=== PATIENT | female | born 1970 | race Caucasian/White ===

== ENCOUNTER 2016-11-09 18:42 | Emergency (ER) | payer BC, MEDICAID ==
[~2016-11-09] VITALS: Ht 154.9 cm; Wt 98.5 kg
[~2016-11-09 18:42] MED LIST: LEVO100T87 PO
[2016-11-09 18:57] VITALS: Ht 154.9 cm; Wt 98.5 kg
--- NOTE | 2016-11-09 19:29 | ERD ---
ER Documentation Chief Complaint Date/Time DATE: 11/09/16 TIME: 19:24 Chief Complaint bilateral eye redness, itching, watery discharge, and swelling surrounding eyes earlier HPI 46 year old presents here in emergency department for complaints of bilateral eye redness and itching watery discharge, complaining of sharp pains on the right eye started this morning, noted swelling surrounding by both eyes this morning, it has resolved. Patient denies any purulent discharge from the eyes. Patient denies any fever or chills. Patient denies any trauma in the eye. Patient denies any foreign body sensation in the eye. Patient denies any vision changes. ROS All systems reviewed and are negative except as per history of present illness. Medications Home Meds Reported Medications Levothyroxine Sodium* (Levothyroxine Sodium*) 100 Mcg Tablet, 100 MCG PO DAILY 04/28/11 Allergies Allergies: Coded Allergies: No Known Allergy (Unverified , 11/09/16) PMhx/Soc History of Surgery: Yes (GALLBLADDER, APPENDIX) Hx Miscellaneous Medical Probl: Yes (THYROID) Hx Alcohol Use: No Hx Substance Use: No Hx Tobacco Use: No Smoking Status: Unknown if ever smoked FmHx Family History: No coronary disease, No diabetes, No other Physical Exam Vitals Vital Signs Date Time Temp Pulse Resp B/P Pulse Ox O2 Delivery O2 Flow Rate FiO2 11/09/16 18:57 97.7 80 18 113/58 99 Physical Exam GENERAL: The patient is well developed and appropriate for usual state of health, in no apparent distress. HEENT: Atraumatic. Bilateral eyes and noted to be erythematous, mild swelling noted in the upper and lower eyelids, surrounding th earea.Bilateral eyes are PERRL EOM intact.Ears: Normal tympanic membrane, no erythema or bulging. No ear canal swelling. No ear discharge. Nose: normal nasal turbinates, no erythema or swelling. Normal nasal discharge. Throat: oropharynx clear. No tonsillar swelling or tonsillar exudates. No lymphadenopathy. CHEST: Clear to auscultation bilaterally. There are no rales, wheezes or rhonchi. HEART: Regular rate and rhythm. No murmurs, clicks, rubs or gallops. No S3 or S4. ABDOMEN: Soft, nontender and nondistended. Good bowel sounds. No rebound or guarding. No gross peritonitis. No gross organomegaly or masses. No Britt sign or McBurney point tenderness. BACK: No midline or flank tenderness. EXTREMITIES: Equal pulses bilaterally. There is no peripheral clubbing, cyanosis or edema. No focal swelling or erythema. Full range of motion. Grossly neurovascularly intact. NEURO: Alert and oriented. Cranial nerves 2-12 intact. Motor strength in all 4 extremities with 5/5 strength. Sensation grossly intact. Normal speech and gait. SKIN: There is no apparent rash or petechia. The skin is warm and dry. HEMATOLOGIC AND LYMPHATIC: There is no evidence of excessive bruising or lymphedema. No gross cervical, axillary, or inguinal lymphadenopathy. Results 24 hrs Current Medications Medications (Trade) Dose Ordered Sig/Ariadna Route PRN Reason Start Time Stop Time Status Last Admin Dose Admin Fluorescein Sodium (Qpldd-H-Ggdux) 1 strip ONCE ONCE RIGHT EYE 11/09/16 19:30 11/09/16 19:31 DC Tetracaine HCl (Tetracaine 0.5% Steri-Unit Jyoti) 1 drop ONCE ONCE BOTH EYES 11/09/16 19:30 11/09/16 19:31 DC PROCEDURE: CT Brain without contrast. CLINICAL INDICATION: headache TECHNIQUE: A CT of the brain was performed on a multidetector CT scanner utilizing axial imaging from the skull base through the vertex without IV contrast. Multiplanar reformatted images were made. Images were reviewed on a PACS workstation. The CTDIvol is there 42 mGy and the DLP is to 630 mGycm. COMPARISON: Head CT August 20, 2015 FINDINGS: There is no intracranial hemorrhage, mass effect, or midline shift. No extra- axial fluid collection is seen. The ventricles and sulci are normal in size and configuration. The density of the brain is normal, and the mcnamara white matter differentiation appears well-preserved. The visualized osseous structures are grossly unremarkable. There is mucoperiosteal thickening in the sphenoid sinus. IMPRESSION: 1. No evidence of acute intracranial pathology. 2. The brain is normal in appearance. .Estrada Wilkes MD, MD Date Time Electronically viewed and signed by .Estrada Wilkes MD, on 11/09/2016 20: 28 .A/ Procedures/MDM Procedure Note: After obtaining informed consent, the bilateral eye was stained using fluorescein dye. After staining the eye, A Wood's lamp was used to evaluate the eye. There is no foreign body noted in the eye. No corneal abrasions noted. Patient tolerated procedure well. Bilateral eye pressures were also checked, 22 mmHg right eye, 22 mmHg left eye. Visual acuity check, normal for patient. Medical Decision Making: Patient symptoms are consistent with migraine headache , possible tension headache. Patient's bilateral eye redness and itching watery eyes most likely consistent with allergic conjunctivitis. There is low suspicion for neurological emergencies at this time since patients neurologic exam is normal. Patient did not have any altered level consciousness, vomiting, changes in balance or memory and did not have any head injury. Patients CT scan of the head does not show any neurological emergencies at this time. Rx: Fioricet with codeine, Zofran, Naphcon ophthalmic solution, Zyrtec, patient is advised to see an eye doctor for further evaluation, follow-up with primary care doctor in 2-3 days for reevaluation of symptoms. Dispostion: Home. Stable Departure Diagnosis: Primary Impression: Headache Headache type: unspecified Headache chronicity pattern: acute headache Intractability: not intractable Qualified Code: R51 - Acute nonintractable headache, unspecified headache type Additional Impression: Allergic conjunctivitis Laterality: bilateral Qualified Code: H10.13 - Allergic conjunctivitis, bilateral Condition: Stable Patient Instructions: Conjunctivitis, Allergic, Self-Care for Headaches Additional Instructions: Rx: Fioricet with codeine, Zofran, Naphcon ophthalmic solution, Zyrtec, patient is advised to see an eye doctor for further evaluation, follow-up with primary care doctor in 2-3 days for reevaluation of symptoms. JOSÉ MIGUEL VASQUEZ NP Nov 09, 2016 19:29
[2016-11-09] MEDS ORDERED: FLUORESCEIN STRIP RIGHT EYE ONE (19:30)
[2016-11-09] MEDS ORDERED: TETRACAINE 0.5% 4 ML OPH BOTH EYES ONE (19:30)
--- NOTE | 2016-11-09 20:28 | RADRPT ---
PROCEDURE: CT Brain without contrast. CLINICAL INDICATION: headache TECHNIQUE: A CT of the brain was performed on a multidetector CT scanner utilizing axial imaging f rom the skull base through the vertex without IV contrast. Multiplanar reformatted images were made . Images were reviewed on a PACS workstation. The CTDIvol is there 42 mGy and the DLP is to 630 mG ycm. COMPARISON: Head CT August 20, 2015 FINDINGS: There is no intracranial hemorrhage, mass effect, or midline shift. No extra-axial fluid collection is seen. The ventricles and sulci are normal in size and configuration. The density of the brain is normal, and the mcnamara white matter differentiation appears well-preserved. The visualized osseous s tructures are grossly unremarkable. There is mucoperiosteal thickening in the sphenoid sinus. IMPRESSION: 1. No evidence of acute intracranial pathology. 2. The brain is normal in appearance. .Estraad Wilkes MD, MD Date Time Electronically viewed and signed by .Estrada Wilkes MD, on 11/09/2016 20:28 .A/
[2016-11-09] MEDS ORDERED: BUTA1CAP39 PO (20:51)
[2016-11-09] MEDS ORDERED: CETI10CA PO (20:51)
[2016-11-09] MEDS ORDERED: NAPH15DR22 BOTH EYES (20:51)
[2016-11-09] MEDS ORDERED: ACET/BUTAL/CAFF TAB PO ONE (21:00)
== END 2016-11-09 21:01 | disposition home or self-care (01) ==
LOC: FTE 18:42
DX: R51 Headache (principal); H10.13 Acute atopic conjunctivitis, bilateral
CPT/HCPCS: 70450